=== PATIENT | male | born 1960 | race Caucasian/White ===

== ENCOUNTER 2021-08-28 15:32 | Emergency (ER) | payer SELFPAY ==
[~2021-08-28] VITALS: Ht 185.4 cm; Wt 106.6 kg
[2021-08-28 15:54] VITALS: BP 127/88
[2021-08-28] MEDS ORDERED: FLUORESCEIN OPTH STRIP 1 MG OP ONE (16:00)
[2021-08-28] MEDS ORDERED: TETRACAINE HCL/PF 0.5% OPTH 4 ML BTL OP ONE (16:15)
--- NOTE | 2021-08-28 17:02 | NUR ---
PATIENT AMBULATED FROM LOBBY TO ROOM 9
[2021-08-28] MEDS ORDERED: FLUORESCEIN OPTH STRIP 1 MG ONE (17:30)
--- NOTE | 2021-08-28 17:33 | NUR ---
ALEX KASPER AT BEDSIDE.
--- NOTE | 2021-08-28 17:33 | NUR ---
60 y/o M BIB self from home c/o R eye irritation and redness s/p looking under a forklift and dirt falling onto eyes. Pt reports 10/10, burning/constant, non-radiating pain that worsens with blinking. Pt states swelling, redness, pain. Pt denies fever, headache, nausea, vomiting. States eye wash with water without relief. Denies meds. Bed locked in lowest position, side rails x 1. PMH: hypertension, diabetes
[2021-08-28] MEDS ORDERED: TOMOMETER 1 DEV DEV MC ONE (17:34)
[2021-08-28] MEDS ORDERED: GAROS OP (18:03)
--- NOTE | 2021-08-28 18:15 | NUR ---
ALEX KASPER AND DR. WALLACE ARE AT BEDSIDE.
[2021-08-28] MEDS ORDERED: CIPROFLOXACIN 0.3% OP 2.5 ML BTL OP SCH (18:25)
[2021-08-28] MEDS ORDERED: VIGOS OP (18:32)
--- NOTE | 2021-08-28 18:36 | NUR ---
Unable to pull Ciprofloxacin 0.3%. Pharmacy contacted, no answer at this time.
--- NOTE | 2021-08-28 18:38 | NUR ---
Spoke to Fan EmmanuelPalliative Care Nurse, informed him of unavailability of Ciprofloxacin.
--- NOTE | 2021-08-28 19:24 | NUR ---
Report and transfer of care to Luc GROVES.
--- NOTE | 2021-08-28 19:32 | NUR ---
SPOKE WITH [employer]GER AT THIS TIME. ADVISED THEY HAD SPOKEN WITH [facility] IN PHARMACY AND NO C[facility] IN FACILITY
--- NOTE | 2021-08-28 20:10 | NUR ---
[facility] DELIVERY RECEIVED
--- NOTE | 2021-08-28 20:12 | NUR ---
X2 DROPS ADMINISTERED TO R EYE. PATIENT ADVISED TO ADMINISTER 2 DROPS Q15 MINUTES FOR THE NEXT 6 HRS
--- NOTE | 2021-08-28 20:14 | NUR ---
CLEARED FOR DISHCARGE AT THIS TIME. ADVISED TO FOLLOW UP WITH PCP AND RETURN IF CONDITION WORSENS. NO OTHER COMPLAINTS OR CONCERNS AT THIS TIME FOLLOWING DIHSCHARGE TEACHING
[2021-08-28 20:15] VITALS: BP 137/88
== END 2021-08-28 20:14 | disposition home or self-care (01) ==
LOC: MED 15:32
DX: H16.001 Unspecified corneal ulcer, right eye (principal); E11.9 Type 2 diabetes mellitus without complications; I10 Essential (primary) hypertension; Z79.2 Long term (current) use of antibiotics
CPT/HCPCS: 99283